=== PATIENT | male | born 1980 | race Caucasian/White ===

== ENCOUNTER 2017-11-17 19:19 | Emergency (ER) | payer MEDICAID ==
[~2017-11-17] VITALS: Ht 185.4 cm; Wt 127.0 kg
[2017-11-17 19:31] VITALS: BP 158/82
--- NOTE | 2017-11-17 19:31 | NUR ---
PT BIB SELF, PT C/O RIGHT EYE REDNESS AND STAPH INFECTION ON BACK OF NECK. PT AOX3 RR EVEN AND UNLABORED. NO SOB NOTED. NAD NOTED. NO NVD AT THIS TIME. DR. JACOB AT BEDSIDE FOR EVAL.
== END 2017-11-17 19:41 | disposition home or self-care (01) ==
LOC: ER 19:19
DX: H10.33 Unspecified acute conjunctivitis, bilateral (principal); L02.11 Cutaneous abscess of neck
CPT/HCPCS: 99283; A4606; Z7610